=== PATIENT | female | born 1980 | race Caucasian/White ===

== ENCOUNTER 2016-09-28 13:18 | Emergency (ER) | payer BC ==
[2016-09-28 14:50] VITALS: BP 113/66
[2016-09-28] MEDS ORDERED: Tetan/Diph/Pertus SYR(Tdap)* 0.5 ML SYR(BOOSTRIX) use SYR IM ONE (16:29)
--- NOTE | 2016-09-28 16:35 | UC ---
Bite Injury/Animal HPI - HPI Summary HPI Summary: The patient comes in today for: 1. Dog bite: Onset: 2-3 days ago. Palliative/provocative: Movement of the left arm and pressure to the area. Quality: Ache, soreness, Region: Left forearm. Severity: 4/10 Time: Constant. Associated symptoms: Fevers: No temperature taken. Discharge: None. Last tetanus: 5 years ago. Home treatment: Antibiotic ointment. The offending dogs were owned by the patient and they are up-to-date regarding their immunizations. * - History of Current Complaint Chief Complaint: UCBiteInjury Stated Complaint: DOG BITE LEG Time Seen by Provider: 09/28/16 16:25 Hx Obtained From: Patient Hx Last Menstrual Period: 09/10/06 - Allergies/Home Medications Allergies/Adverse Reactions: Allergies Allergy/AdvReac Type Severity Reaction Status Date / Time Penicillins [PCN] Allergy Diaphoresis Verified 09/28/16 14:50 Home Medications: Home Medications Cholecalciferol [D3-1000] 1,000 unit PO DAILY 09/28/16 [History Confirmed ] Cyanocobalamin TAB* [Vitamin B12 TAB*] 500 mcg PO DAILY 09/28/16 [History Confirmed 09/28/16] Iron W/ Vitamins [Ericka-Plus H] 1 cap PO DAILY 09/28/16 [History Confirmed ] Lactobacillus [Probiotic] 1 cap PO DAILY 09/28/16 [History Confirmed 09/28/16] PMH/Surg Hx/FS Hx/Imm Hx Previously Healthy: Yes Endocrine History Of: Denies: Diabetes, Thyroid Disease, Hyperthyroidism, Hypothyroidism, Dyslipidemia Cardiovascular History Of: Denies: Cardiac Disorders, Hypertension, Pacemaker/ICD, Myocardial Infarction , Congestive Heart Failure, Atrial Fibrillation, Deep Vein Thrombosis, Bleeding Disorders Respiratory History Of: Denies: COPD, Asthma, Bronchitis, Pneumonia, Pulmonary Embolism GI/ History Of: Denies: Gastroesophageal Reflux, Ulcer, Gastrointestinal Bleed, Gall Bladder Disease, Kidney Stones, Diverticulitis, Renal Disease, Urosepsis Neurological History Of: Denies: TIA, CVA, Dementia, Seizures, Migraine Psychological History Of: Denies: Anxiety, Depression, Bipolar Disorder, Schizophrenia, Post Traumatic Stress Disorder Cancer History Of: Denies: Lung Cancer, Colorectal Cancer, Breast Cancer, Prostate Cancer, Cervical Cancer Other History Of: Negative For: HIV, Hepatitis B, Hepatitis C, Anticoagulant Therapy - Surgical History Surgical History: Yes Surgery Procedure, Year, and Place: C Section - Family History Known Family History: Negative: Cardiac Disease, Hypertension, Diabetes - Social History Occupation: Employed Full-time Alcohol Use: Occasionally Substance Use Type: None Substance Use Comment - Amount & Last Used: "every once in a while" Smoking Status (MU): Never Smoked Tobacco Review of Systems Constitutional: Negative Skin: Rash Eyes: Negative ENT: Negative Respiratory: Negative Cardiovascular: Negative Gastrointestinal: Negative Genitourinary: Negative Musculoskeletal: Arthralgia All Other Systems Reviewed And Are Negative: Yes Physical Exam Triage Information Reviewed: Yes Appearance: Well-Appearing, No Pain Distress, Well-Nourished Vital Signs: Initial Vital Signs Temp 98.2 F 09/28/16 14:46 Pulse 64 09/28/16 14:46 Resp 16 09/28/16 14:46 BP 113/66 09/28/16 14:46 Pulse Ox 100 09/28/16 14:46 Vital Signs Reviewed: Yes Eyes: Positive: Conjunctiva Clear. Negative: Discharge ENT: Positive: Hearing grossly normal. Negative: Pharyngeal erythema, Nasal congestion, Nasal drainage, TM bulging, TM dull, TM red, Tonsillar swelling, Tonsillar exudate Dental: Negative: Gross Decay/Caries @, Dental Fracture @ Neck: Positive: Supple, Nontender, No Lymphadenopathy. Negative: Nuchal Rigidity Respiratory: Positive: Lungs clear, No respiratory distress, No accessory muscle use. Negative: Crackles, Wheezing Cardiovascular: Positive: RRR, No Murmur Abdomen Description: Positive: Nontender, No Organomegaly, Soft. Negative: Distended, Guarding Musculoskeletal: Positive: Strength Intact, ROM Intact, Edema @, Other: - She has no restriction of her left forearm movement. No guarding. There is an ecchymotic area about 5 cm long by 4 cm wide with bite gomez in the center area. No erythema or discharge Neurological: Positive: Alert, Muscle Tone Normal Psychological: Positive: Age Appropriate Behavior, Consolable Skin: Negative: rashes, breakdown Bite Injury Course/Dx - Course Course Of Treatment: The patient is allergic to penicillin so was recommended to take alternative antibiotics for possible forearm infection. Mears antimicrobial guide recommendation: clindamycin 300 mg qid and Cipro 500 mg bid. She got a tetanus vacine also. - Differential Dx/Diagnosis Provider Diagnoses: Dog bite, right forearm. Discharge - Discharge Plan Condition: Stable Disposition: HOME Patient Education Materials: Animal Bite (ED) Referrals: Mragaret French MD [Primary Care Provider] - 3 Days (Please see your primary care provider (or us if you are not able to be seen timely) in 2-3 days to see how well you are doing. If you get worse, please be seen sooner in ER.)
== END 2016-09-28 16:58 | disposition home or self-care (01) ==
LOC: UCEAST 13:18
DX: S41.152A Open bite of left upper arm, initial encounter (principal); W54.0XXA Bitten by dog, initial encounter; Z88.0 Allergy status to penicillin
CPT/HCPCS: 90471; 90715; 99212; G0463